=== PATIENT | male | born 1960 | race Caucasian/White ===

== ENCOUNTER 2019-10-12 20:02 | Inpatient (IN) ==
[2019-10-12 21:22] LABS: BASO# 0.02 X1000 (0.0-0.2); BASO% 0.2 % (0.0-0.8); EOS# 0.25 X1000 (0.0-0.7); EOS% 2.2 % (0.0-10.0); HEMATOCRIT 36.6 % (42.0-52.0); HEMOGLOBIN 12.1 g/dL (14.0-18.0); IMM GRAN# 0.03 X1000 (0.0-0.04); IMM GRAN% 0.3 % (0.0-0.5); LYMPH% 12.6 % (20.5-51.1); MCH 30.3 PG (27-31); MCHC 33.1 g/dL (33-37); MCV 91.7 FL (81-99); MONO# 1.28 X1000 (0.11-0.59); MONO% 11.5 % (1.7-9.3); MPV 10.3 FL (7.4-10.4); NEUT# 8.16 X1000 (1.4-6.5); NEUT% 73.2 % (42.2-75.2); PLT 319 X1000 (130-400); RBC 3.99 XMIL (4.7-6.1); RDW 12.1 % (11.5-14.5); WBC 11.14 X1000 (4.8-10.8)
[2019-10-12] MEDS ORDERED: LEVAQUIN PO ONE (21:51)
[2019-10-12] MEDS ORDERED: DUONEB (A & A) INH ONE (21:52)
[2019-10-12 21:53] LABS: ESTIMATED GFR > 60
--- NOTE | 2019-10-12 21:55 | Diag Imaging Result Doc PS360 ---
EXAM: CHEST-2 VIEWS INDICATION: pna? TECHNIQUE: 3 views COMPARISON: None. FINDINGS: There is mild diffuse interstitial thickening bilaterally. Consider mild interstitial edema versus mild fibrotic change. No focal airspace consolidation is appreciated. There is no discrete pleural fluid collection or pneumothorax. The cardiomediastinal silhouette and central vasculature are grossly unremarkable. IMPRESSION: Mild thickened interstitial markings bilaterally. Consider mild interstitial edema versus mild fibrotic change. Electronically signed by Eligio Khalil 10/12/2019 9:53 PM
[2019-10-12 21:56] LABS: AGAP 13; ALB/GLOB RATIO 1.9; ALBUMIN 3.9 g/dL (3.5-5.0); ALKALINE PHOSPHATASE 94 U/L (32-122); BUN 7 mg/dL (8-22); CALCIUM 8.4 mg/dL (8.8-10.2); CHLORIDE 86 mmol/L (98-107); COSMO 257; CREATININE 0.8 mg/dL (0.7-1.2); GLUCOSE 109 mg/dL (70-104); GOT 29 U/L (10-34); GPT 24 U/L (10-44); POTASSIUM 3.8 mmol/L (3.5-5.1); SODIUM 129 mmol/L (136-145); TCO2 30 mmol/L (25-35)
--- NOTE | 2019-10-12 21:59 | PROVIDER DOCUMENTATION ---
HPI-General Adult - General Chief Complaint: General Adult Stated Complaint: dx pneumonia yesterday Time Seen by Provider: 10/12/19 21:10 Source: patient Allergies/Adverse Reactions: Patient Allergies Allergy/AdvReac Type Severity Reaction Status Date / Time No Known Allergies Allergy Verified 10/12/19 20:51 Home Medications: Home Medication List Medication Instructions Recorded Confirmed Last Taken Type Doxycycline 100 mg PO BID 10/12/19 10/12/19 Unknown History - History of Present Illness -Gen Adult Nature of Presenting Problems: Patient went to urgent care after being sick with a cough. At urgent care they told him he had PNA but didn't check a xray and started him on doxy. It made him feel very strange and see spiders. He stopped taking it Review of Systems - Adult - REVIEW OF SYSTEMS - ADULT Constitutional: reports: no symptoms reported. denies: chills, fever, fatique, night sweats, weight gain Eyes: reports: no symptoms reported. denies: discharge, dry eyes, decreased vision, blurred vision, eye pain, redness Ears, Nose, Mouth & Throat: reports: no symptoms reported. denies: ear discharge, ear pain, hearing loss, tinnitus, epistaxis, loose teeth, mouth/dental pain, hoarseness, throat pain, throat swelling Cardiovascular: reports: no symptoms reported. denies: chest pain, edema, heart murmur, orthopnea, palpitations, poor circulation, PND, syncope Respiratory: reports: see HPI, cough, excessive sputum production, shortness of breath. denies: hemoptysis, pleurisy, wheezing Gastrointestinal: reports: no symptoms reported. denies: abdominal pain, hematemesis, constipation, diarrhea, frequent heartburn, nausea, rectal bleeding, vomiting Genitourinary: reports: no symptoms reported. denies: dysuria, discharge, frequency, flank pain, hematuria, incontinence, urinary retention, urgency Musculoskeletal: reports: no symptoms reported. denies: bone pain, back pain, joint pain, muscle aches, muscle weakness, neck pain Integumentary: reports: no symptoms reported. denies: hives, hair loss, mole changes, nail changes, rash, skin sores/ulcer, skin thickening Neurological: reports: no symptoms reported. denies: ataxia, dizziness/vertigo, headache/migraines, numbness, paresthesia, slurred speech, syncope, tremors Psychiatric: reports: no symptoms reported. denies: anxiety, anti-depressant use, depression, emotional problems, insomnia, panic attacks Endocrine: reports: no symptoms reported. denies: change in skin pigment, excessive sweating, goiter, heat intolerance, increased hunger Hematologic/Lymphatic: reports: no symptoms reported. denies: blood clots, easy bruising, low blood count, swollen lymph nodes, transfusions Allergic/Immunologic: reports: no symptoms reported. denies: allergic react ions, allergic rhinitis, eczema, hay fever, hives, positive PPD, urticaria All Other Systems: Reviewed and Negative Past History - Adult - PAST MEDICAL HISTORY-ADULT Review of Records: reports: Old Records Reviewed, Nursing Assessment Review, Medications Reviewed, Social history reviewed & non-contributory. Major Childhood Illnesses: reports: denies history Cardiovascular: reports: palpitations Respiratory: reports: denies history Gastrointestinal: reports: denies history Obstetrical/Gynecological: reports: denies history Genitourinary: reports: denies history Musculoskeletal: reports: denies history Neurological: reports: denies history Endocrine/Immune: reports: denies history Other Conditions: reports: denies history - PRIOR SURGERIES/PROCEDURES Surgical/Procedure History: reports: reviewed, not pertinent - IMMUNIZATION STATUS Childhood Immunizations: See Nurse Assessment Flu Vaccine: See Nurse Assessment - FAMILY HISTORY Family History: reviewed, not pertinent - SOCIAL HISTORY Smoking: greater than 1 pack/day Provider spent 3-5 mins advising pt. on dangers of tobacco.: Discussed manners to quit use, and f/u contacts for add'l counseling. Substance Use: none/never Alcohol Use Frequency: never Physical Exam-General - PHYSICAL EXAM-ADULT Initial Vital Signs Reviewed: Yes - CONSTITUTIONAL General Appearance: appears well, alert, no apparent distress - EYES Eyes: PERRL/EOMI, pink conjunctivae - HEAD, EARS, NOSE, MOUTH & THROAT HENMT: normocephalic/atraumatic, moist mucous membranes, normal ENT inspection - NECK Neck: non-tender, full range of motion - RESPIRATORY Respiratory: chest non-tender, lungs clear, no respiratory distress, decreased breath sounds - CARDIOVASCULAR Cardiovascular: normal peripheral pulses, regular rate, rhythm, no edema - GASTROINTESTINAL (ABDOMEN) Abdominal Exam: normal bowel sounds, non tender, soft - LYMPHATIC Lymphatic: no adenopathy - MUSCULOSKELETAL Back Exam: normal inspection, no CVA tenderness Extremity: normal range of motion, non-tender, normal gait - SKIN Integumentary: normal color, normal turgor, warm/dry - NEUROLOGIC 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, grossly normal - PSYCHIATRIC Psych/Mental Status: normal mood/affect, normal thought content, normal thought process, oriented x 3 Progress - PLAN OF CARE/RESULTS Progress/Plan/Lab Results: Vital Signs - 8 hr 10/12/19 20:54 Temperature 98.3 F Pulse Rate 79 Respiratory Rate 16 Blood Pressure 148/87 O2 Sat by Pulse Oximetry 96 Laboratory Results - last 24 hr 10/12/19 10/12/19 20:41 20:41 WBC 11.14 H RBC 3.99 L Hgb 12.1 L Hct 36.6 L MCV 91.7 MCH 30.3 MCHC 33.1 RDW Std Deviation 12.1 Plt Count 319 MPV 10.3 Immature Gran % (Auto) 0.3 Neut % (Auto) 73.2 Lymph % (Auto) 12.6 L Tompkins % (Auto) 11.5 H Eos % (Auto) 2.2 Baso % (Auto) 0.2 Immature Gran # (Auto) 0.03 Neut # (Auto) 8.16 H Lymph # (Auto) 1.40 Tompkins # (Auto) 1.28 H Eos # (Auto) 0.25 Baso # (Auto) 0.02 Estimated GFR/1.73 m2 > 60 Orders Category Date Time Status cxr [CHEST-2 VIEWS] [RAD] Stat Exams 10/12/19 21:10 Taken CBC WITH DIFF [HEME] Stat Lab 10/12/19 20:41 Completed COMPREHENSIVE METABOLIC PANEL [CHEM] Stat Lab 10/12/19 20:41 Received Albuterol 2.5MG/Ipratrop 0.5MG [Duoneb (A & A)] Med 10/12/19 21:52 Once 3 ml INH NOW ONE Levofloxacin [Levaquin] Med 10/12/19 21:51 Once 750 mg PO NOW ONE Aerosol Treatments Routine Oth 10/12/19 21:52 Ordered Aerosol Treatments Stat Oth 10/12/19 21:52 Ordered Result Diagrams: 10/12/19 20:41 10/12/19 20:41 - XRAY 1 XRAY Study: Chest Impression: See EMR Report XRAY Interpretation: fibrotic changes Departure - Departure Date of Disposition Decision: 10/12/19 Time of Disposition Decision: 22:00 DIAGNOSIS: Hyponatremia Disposition: ADMITTED INPATIENT 09 Certified Medical Emergency: Emergent Condition: Good Referrals and Follow-Ups: None,PCP [Primary Care Provider] - - Critical Care Note This patient required my direct & personal management of CC.: No Attestation - Physician/ SETH Attestation Patient care was provided by Advanced Practice Provider:: Yes Advanced Practice Provider:: Karsten Escudero Advanced Practice Provider documentation review:: The Mid-level provider documentation, treatment plan and medical decision making was reviewed by the physician who agrees with all treatment and medical decision making by the MLP. The physician spent face to face time with patient:: No Advanced Practice Provider documentation review:: Supervising physician onsite and consulted in the evaluation and care of this patient. The physician did not have a face to face encounter with the patient.
[2019-10-12] MEDS ORDERED: NS 1,000 ML ONE (22:13)
[2019-10-12] MEDS ORDERED: NS 1,000 ML IV ONE (22:14)
[2019-10-12] MEDS ORDERED: TYLENOL PO PRN (22:59)
--- NOTE | 2019-10-12 23:42 | HISTORY AND PHYSICAL ---
CHIEF COMPLAINT: "Told at urgent care I have pneumonia." HISTORY OF PRESENT ILLNESS: This is a 59-year-old male who comes into the emergency room after going to urgent care after having around 1 week of cough with yellow sputum. He was told at the outpatient facility that he had pneumonia. However, chest x-ray was not taken. He was started on doxycycline and sent home. He took the doxycycline and stated that he began feeling weird. He was having hallucinations seeing spiders. He did take it a second time and felt as if the same thing happened again so he came into the emergency room stating that he felt worse. Chest x-ray did not show a pneumonia. However, he was noted to have hyponatremia on his labs. He will be admitted on observation status for further evaluation and treatment. PAST MEDICAL HISTORY: Denies. PREVIOUS SURGICAL HISTORY: None to note. ALLERGIES: No known drug allergies. FAMILY HISTORY: Positive for COPD and coronary artery disease. SOCIAL HISTORY: He is a pack a day smoker, has been for multiple years. He drinks 5 beers a week. However, I am not sure if this was a correct amount. Denies illicit drug use. HOME MEDICATIONS: Doxycycline 100 mg p.o. b.i.d. REVIEW OF SYSTEMS: Fourteen-point review of systems conducted with the patient. Pertinent positives listed above in the HPI. All other systems reviewed and found to be negative. PHYSICAL EXAMINATION: VITAL SIGNS: Temperature 98.3, pulse 79, respirations 16, blood pressure 148/87, oxygen saturation 96% on room air. GENERAL: A 59-year-old male lying in the ER stretcher. He is alert and oriented times 3, is in no acute distress. HEENT: Head is atraumatic, normocephalic. Pupils equal, round, reactive to light. Extraocular eye movement intact. Sclera is anicteric. Conjunctiva is pink. Oral mucosa is moist. NECK: Supple. No JVD. No thyromegaly. Trachea is midline. No cervical lymphadenopathy. CARDIAC: S1, S2 appreciated. No murmurs, gallops or rubs. LUNGS: Mild fine crackles noted on expiration. Prolonged expiratory phase. Otherwise clear to auscultation. No wheezing. Symmetric rise and fall with respirations. ABDOMEN: Soft, nondistended, nontender. Bowel sounds present all 4 quadrants, normoactive. No pulsatile mass. No organomegaly. EXTREMITIES: No clubbing, cyanosis or edema. Two-plus pedal pulses bilaterally. GENITOURINARY: No bladder distention. Patient voids. Otherwise deferred. NEUROLOGICAL: Alert and oriented times 3. No focal motor deficits. Otherwise nonfocal examination. DIAGNOSTIC DATA: Chest x-ray shows fibrotic changes. LABORATORY DATA: WBC 11.14. Hemoglobin 12.1. Hematocrit 36.6. Platelet count 319. Sodium 129. Potassium 3.8. Chloride 86. Carbon dioxide 30. BUN 7. Creatinine 0.8. Glucose 109. ASSESSMENT: 1. Hyponatremia. 2. Pulmonary fibrosis. 3. Tobacco abuse syndrome. 4. Questionable beer potomania. PLAN: Admit patient to the medical floor on observation status. Order a hyponatremia workup. Start saline at 75 mL an hour. We will recheck sodium every 6 hours. Further recommendations per patient clinical course. Dictated by SUMAYA Ko for Salvatore Cruz MD I have performed a face to face diagnostic evaluation. Labs/Xrays- reviewed. Exam- Chest - clear, CV- regular. A/P- Hyponatremia- Admit, IV fluids, monitor electrolytes. Dr. Cruz cc: SUMAYA Ko MD [facility]
[2019-10-13 07:18] LABS: AGAP 8; BUN 5 mg/dL (8-22); CALCIUM 8.7 mg/dL (8.8-10.2); CHLORIDE 98 mmol/L (98-107); COSMO 273; CREATININE 0.7 mg/dL (0.7-1.2); ESTIMATED GFR > 60; GLUCOSE 128 mg/dL (70-104); MAGNESIUM 2.3 mg/dL (1.5-2.7); SODIUM 137 mmol/L (136-145); TCO2 31 mmol/L (25-35)
[2019-10-13 08:07] LABS: BASO# 0.01 X1000 (0.0-0.2); BASO% 0.2 % (0.0-0.8); EOS# 0.21 X1000 (0.0-0.7); EOS% 3.2 % (0.0-10.0); HEMATOCRIT 36.1 % (42.0-52.0); HEMOGLOBIN 12.3 g/dL (14.0-18.0); LYMPH# 1.56 X1000 (1.2-3.4); LYMPH% 23.5 % (20.5-51.1); MCH 31.9 PG (27-31); MCHC 34.1 g/dL (33-37); MCV 93.8 FL (81-99); MONO# 0.84 X1000 (0.11-0.59); MONO% 12.7 % (1.7-9.3); NEUT# 4.01 X1000 (1.4-6.5); NEUT% 60.4 % (42.2-75.2); PLT 307 X1000 (130-400); RBC 3.85 XMIL (4.7-6.1); RDW 12.4 % (11.5-14.5); WBC 6.63 X1000 (4.8-10.8)
[2019-10-13 10:43] LABS: URINE SOURCE CLEAN CATCH
[2019-10-13 10:55] LABS: BILIRUBIN URINE NEGATIVE (NEGATIVE); BLOOD URINE NEGATIVE (NEGATIVE); COLOR STRAW; GLUCOSE URINE NEGATIVE (NEGATIVE); KETONE URINE NEGATIVE (NEGATIVE); LEUKOCYTES URINE NEGATIVE (NEGATIVE); NITRITE URINE NEGATIVE (NEGATIVE); PROTEIN URINE NEGATIVE (NEGATIVE); SP GRAVITY URINE 1.005; TURBIDITY URINE CLEAR (CLEAR); UROBILINOGEN URINE NORMAL (NORMAL)
[2019-10-13 10:57] LABS: UR EPITHELIAL CELLS <10 /HPF (<10); URINE BACTERIA NEGATIVE /HPF; URINE RBC <10 /HPF (<10); URINE WBC <10 /HPF (<10)
[2019-10-13 11:10] LABS: UR AMPHETAMINES QUAL NONE DETECTED (NONE DETECT); UR BARBITUATES QUAL NONE DETECTED (NONE DETECT); UR BENZODIAZEPIN QUAL NONE DETECTED (NONE DETECT); UR CANNABINOIDS QUAL NONE DETECTED (NONE DETECT); UR COCAINE QUAL NONE DETECTED (NONE DETECT); UR METHADONE QUAL NONE DETECTED (NONE DETECT); UR OPIATES QUAL NONE DETECTED (NONE DETECT); UR OXYCODONE QUAL NONE DETECTED (NONE DETECT); UR PCP QUAL NONE DETECTED (NONE DETECT)
--- NOTE | 2019-10-13 12:25 | PROGRESS NOTE ---
DATE: 10/13/2019 INTERVAL HISTORY: Mr. Norris was admitted for cough with yellowish expectoration and hyponatremia. He did not have any other acute overnight events. SUBJECTIVE: Mr. Norris is feeling better this morning than yesterday, though he was sleepy when I examine him. He complains of cough with greenish expectoration. He denies any chest pain. He denies any nausea, vomiting, or abdominal pain. REVIEW OF SYSTEMS: Positive for greenish expectoration. Positive for weakness, tiredness. Negative for hallucination. Positive for headache. OBJECTIVE: Vital Signs: Temperature 98.2 degrees, pulse 70, respiratory rate 18, blood pressure 117/63, he is saturating 95% on room air. General: He is not in acute distress. HEENT: Oral cavity is moist. Lungs: Air entry bilaterally equal. No wheeze or rhonchi. He had mild crackles, infrascapular region. He does not have any pharyngeal congestion. Cardiovascular: S1, S2 normal. No murmur or gallop. Abdomen: Soft, nontender. Neck: He has mild distention of neck veins. Extremities: He has bilateral lower extremity edema. Intact dorsalis pedis and popliteal pulses. Neurologic: He is drowsy, but arousable and then becomes alert and has been able to provide history. However, he intermittently appears sleepy for some reason, and could not recall the past events completely, though later on, he turned around and was able to provide enough history. LABORATORY DATA: CBC suggestive of resolution of leukocytosis, WBC of 6.6, hemoglobin 12.3, platelets of 307,000. BUN 8, creatinine 5. MICROBIOLOGY: No data. IMAGING: No new imaging. ASSESSMENT AND PLAN: 1. Cough with subjective feelings of shortness of breath. The patient says he has been feeling unwell intermittently over the last 7 days with subjective fever and chills. He has been living in a motel with someone who also had been feeling sick, but he could not provide any detailed information about his roommate. I will get sputum culture, urine Streptococcus and Legionella antigen, and a CT scan of the chest. Differential includes acute bronchitis, bronchopneumonia, pulmonary fibrosis, acute pulmonary edema, influenza and other viral pneumonia. I will also get influenza screen, and I will stop intravenous fluids. 2. Hyponatremia, now resolved after intravenous fluid resuscitation. 3. Tobacco abuse. He was counseled about smoking cessation. 4. Disposition. Continue to monitor the patient inside the hospital. Plan of care discussed with him. His questions have been answered. Based on CT scan, I will consider starting him on Levaquin. cc: Manuel Cadet MD MTDD
--- NOTE | 2019-10-13 16:00 | Diag Imaging Result Doc PS360 ---
EXAM: CT THORAX W/O CONTRAST INDICATION: Evaluate for Pulmonary edema vs pulmonary fibrosis TECHNIQUE: This exam was performed using automated exposure control, adjustment of mA or kV according to patient size, and/or use of iterative reconstruction technique. COMPARISON: None. FINDINGS: There are patchy peripheral groundglass opacities seen throughout both lungs. In the lower lobes they have become confluent posteriorly. However, there is also likely a component of atelectasis as well. This suggests an atypical pneumonia. Although the pattern is nonspecific and can be seen with other viral pneumonias, if there is suspicion for COVID-19, it can have a very similar CT appearance. There is a calcified granuloma in the right lower lobe and there are several subcentimeter noncalcified nodules bilaterally that are nonspecific and may represent noncalcified granulomata. Consider follow-up based on Fleischner Society criteria. For reference, there is a 2.6 mm noncalcified nodule in the right lower lobe on image 105 of series 3. There is no pleural fluid collection and no pneumothorax. There are calcified mediastinal and right hilar lymph nodes indicating prior granulomatous disease. There are small shotty nonspecific noncalcified mediastinal lymph nodes as well. There is no cardiomegaly. Limited views of the upper abdomen are essentially unremarkable. IMPRESSION: 1.Patchy groundglass opacities at the periphery of both lungs with confluence at the posterior lower lobes suggesting atypical pneumonia. Please see the above discussion. 2.Evidence of prior granulomatous disease and several subcentimeter noncalcified nodules bilaterally that probably represent noncalcified granulomata. Consider follow-up based on Fleischner Society criteria. The findings were discussed with Manuel Cadet MD at 10/13/2019 3:57 PM and was a acknowledged. Electronically signed by Eligio Khalil 10/13/2019 3:57 PM
[2019-10-13] MEDS: LEVAQUIN 500 MG/D5W 500 MG/100 ML IVPB IV SCH (20:48)
[2019-10-14] MEDS ORDERED: NICODERM PATCH TD SCH ×2 (09:00→21:00)
[2019-10-14] MEDS: SUBUTEX SL SCH ×2 (10:18→21:58)
--- NOTE | 2019-10-14 18:08 | PROGRESS NOTE ---
DATE: 10/14/[address] scan of his chest yesterday, which was suspicious for COVID 19 so we had initiated airborne precautions, and I had updated him about the findings. No other acute overnight events. SUBJECTIVE: Mr. Norris is feeling significantly better today. He denies any chest pain. He is not feeling short of breath at rest. He was able to go to the bathroom without short of breath. He still has cough, but it is better than before. He has not been able to bring up sputum for collection. Denies nausea, vomiting, abdominal pain or diarrhea. He again denies any known diagnosed or suspected COVID 19 exposure. OBJECTIVE: Vital Signs: Temperature of 98.1 degrees, pulse 65, respiratory rate 20, blood pressure 124/69 and saturating 95% room air. General: Mr. Norris is not in acute distress. Oral cavity is moist. Lungs: Air entry bilaterally equal. No wheeze, rhonchi, crackles. Cardiovascular: S1, S2 normal. No murmur, rub, or gallop. Abdomen: Soft and nontender. Extremities: No lower extremity edema. Neurologic: He is alert and oriented x3. He is still coughing during examination. LABORATORY: No CBC or BMP today. MICROBIOLOGY: Nasopharyngeal influenza swab was negative. IMAGING: Chest CT had patchy ground-glass opacities in the periphery of both lungs suggestive of atypical pneumonia. Evidence of prior granulomatous disease several subcentimeter noncalcified bilaterally, suggestive of granulomata. ASSESSMENT AND PLAN: 1. Atypical bacterial pneumonia versus COVID 19 infection vs other pneumonia. He has been having subjective fevers, chills, and productive cough since about 7 days duration. He recently traveled from [place] to [place] about a month ago, and lives in a motel with a friend who also has respiratory symptoms. Influenza screen has been negative. I will keep him on intravenous levofloxacin for suspected atypical pneumonia. COVID 19 swabs have been collected on 10/13/2019. I will await final results. 2. Hyponatremia likely because of poor oral intake, improved. 3. Tobacco abuse and alcohol abuse. Patient was counseled about quitting these substances. DISPOSITION: The patient has clinically improved. If he continues to feel better, we could potentially consider discharge in next 24 hours. However, COVID 19 test results are pending. Plan of care discussed with the patient. His questions have been answered. I will keep him on nicotine patch for tobacco abuse, and Buprenorphine for chronic pain. cc: Manuel Cadet MD MTDD
[2019-10-14] MEDS: LEVAQUIN 500 MG/D5W 500 MG/100 ML IVPB IV SCH (21:59)
[2019-10-15] MEDS: ZOFRAN IV PRN ×2 (05:19→10:49)
[2019-10-15 08:38] VITALS: BP 132/78
[2019-10-15] MEDS: SUBUTEX SL SCH (10:37)
--- NOTE | 2019-10-15 15:40 | DISCHARGE SUMMARY ---
ADMISSION DATE: 10/12/2019 DISCHARGE DATE: 10/15/2019 DISPOSITION: Home with recommendations for self quarantine for 14 days unless he unless he is called from the health department or from this hospital about his Covid-19 testing results. INVASIVE PROCEDURES: None. IMAGING STUDIES OF SIGNIFICANCE: 1. Chest x-ray did show second interstitial marking bilateral. 2. A CT scan of the chest show patchy ground-glass opacity with peripheral at both lungs suggestive of atypical pneumonia. ADMISSION DIAGNOSIS: 1. Hyponatremia. 2. Pulmonary fibrosis. 3. Tobacco use. 4. Questionable beer potomania. DIAGNOSIS AT THE TIME OF DISCHARGE: 1. Atypical multifocal pneumonia. 2. Hyponatremia secondary to beer potomania. 3. Tobacco use and abuse. 4. Alcohol use and abuse. DISCHARGE MEDICATIONS: Levofloxacin 500 p.o. daily for 7 days. PRESENTING COMPLAINT: Mr. Grace is a 59-year-old gentleman with no previous history except for some pneumonias in the past came to the emergency room after he was referred from Urgent Care. Mr. Grace refers that he was he was been having cough with yellow sputum for about a week, went to the Urgent Care, was sent home on doxycycline. Unfortunately, he continues to feel weird so, he came he went back and they did an x-ray-which showed pneumonia, was advised to come to the emergency room. Upon presenting to the emergency room Mr. Grace was evaluated and admitted for atypical pneumonia. HOSPITAL COURSE: Mr. Grace was admitted to the hospital floor. A CAT scan which was done after the chest x-ray revealed findings of atypical pneumonia versus possible Covid-19. Mr. Grace was immediately put on negative isolation room and testing was done. Throughout the hospital course Mr. Grace refers to be feeling a lot better on the antimicrobial therapy. He has not had any fever throughout the hospital course. He is not hypoxemic and his white cell count has normalized with normal lymph lymphocytes. This morning, he refers to be doing okay. No new no new complaints. No more coughing. He said he is feels a lot better and we think he is okay to be discharged. I have personally called to the Covid-19 hotline at . I have spoken with Ms. Lopes, who has told me that so far the result is not out and that whenever the result comes out, they will notify the physician who ordered the test, in this case will be Dr. Cadet. Ms. Lopes also took my personal number and told and assured me that if the result comes out, they will call me as well. We have advised Mr. Grace to be in self quarantine until we have the final results from the [facility]. DISCHARGE INSTRUCTIONS: All the discharge instructions have been discussed with him and he voiced understanding. As I said we stressed the utmost need and the importance for him to self isolate, self quarantine for 14 days until we have the results back. TIME SPENT: 35 minutes. cc: Singh Graves MD
== END 2019-10-15 15:54 | disposition home or self-care (01) | DRG 194 ==
LOC: ED 20:02 → SUATTDRO 23:54 → 3N 23:54
PROVIDERS: ATTEND Internal Medicine